=== PATIENT | male | born 1975 | race Caucasian/White ===

== ENCOUNTER 2018-08-18 21:57 | Emergency (ER) | payer MEDICARE ==
[~2018-08-18 21:57] MED LIST: ISOVUE-370 76%-LOCM 1 ML ONE
[2018-08-18] MEDS ORDERED: Dicyclomine 20 MG TAB ONE (23:35)
[2018-08-18 23:40] LABS: #Basophils 0.1 thou/uL (0.0-0.2); #Eosinphils 0.1 thou/uL (0.0-0.7); #Lymphocytes 1.2 thou/uL (1.20-3.40); #Monocytes 0.6 thou/uL (0.11-0.59); #Neutrophils 2.9 thou/uL (1.40-6.50); %Basophils 1.4 % (0.0-1.0); %Eosinophils 1.8 % (0.0-10.0); %Lymphocytes 24.6 % (21.0-51.0); %Monocytes 12.9 % (0.0-10.0); %Neutrophils 59.3 % (42.0-75.0); Hemoglobin 16.1 g/dL (14.0-18.0); MDiff Complete? YES; Macrocytosis SLIGHT = 6-15 cells (100X) (0-5/hpf); Mean Corpuscular HGB CONC 33.9 g/dL (32.0-36.0); Mean Corpuscular Hemoglobin 35.4 pg (27.0-31.0); Mean Platelet Volume 9.5 fL (7.4-10.4); PLT Morphology Comment Appears Decreased; Platelet Count 115 thou/uL (130-400); Red Blood Cell (RBC) Count 4.55 mill/uL (4.70-6.10); White Blood Cell (WBC) Count 4.9 thou/uL (4.8-10.8)
[2018-08-18 23:41] LABS: Bilirubin Negative (Negative); Blood, Urine Negative (Negative); Clarity CLEAR (Clear); Glucose, Urine (Dipstick) Negative (Negative); Leukocyte Negative (Negative); Nitrite Negative (Negative); Protein, Urine (Dipstick) Negative (Neg-Trace); Specific Gravity, Urine 1.004 (1.002-1.036); Urobilinogen 0.2 mg/dL (0.2-1.0); pH, Urine 5.5 (5.0-9.0)
[2018-08-18 23:49] LABS: ALT (SGPT) 76 U/L (8-55); AST (SGOT) 40 U/L (5-34); Albumin 3.9 g/dL (3.5-5.0); Alkaline Phosphatase 61 U/L (40-150); Anion Gap 15 mmol/L (10-20); BUN (Urea Nitrogen) 4 mg/dL (8.9-20.6); Bilirubin, Total 0.5 mg/dL (0.2-1.2); Calc. Creatinine Clearance 0 mL/min (70-130); Calcium 8.7 mg/dL (7.8-10.44); Carbon Dioxide 23 mmol/L (22-29); Chloride 102 mmol/L (98-107); Estimated GFR-MDRD Greater than 90; Globulin 3.2 g/dL (2.4-3.5); Glucose 92 mg/dL (70-105); Potassium 3.8 mmol/L (3.5-5.1); Protein, Total 7.1 g/dL (6.0-8.3); Sodium 136 mmol/L (136-145)
--- NOTE | 2018-08-19 | CT ---
CT ABDOMEN AND PELVIS WITH CONTRAST: 08/18/18 Multiple axial tomograms obtained through the abdomen and pelvis with IV enhancement. INDICATIONS: Right abdominal pain. FINDINGS: Lung bases clear. Liver, spleen and pancreas unremarkable. Adrenal glands normal. Kidneys unremarkable. Small bowel loops are normal caliber. Colon is decompressed and not well evaluated. Appendix is seen and appears normal. Aorta is normal caliber. IVC filter is noted. No adenopathy. Urinary bladder is m ildly distended. IMPRESSION: No evidence of acute process. The colon is decompressed and I cannot adequately assess colon wall. POS: [facility]
== END 2018-08-19 07:13 | disposition home or self-care (01) ==
LOC: ERS 21:57
DX: R10.9 Unspecified abdominal pain (principal); J40 Bronchitis, not specified as acute or chronic; F17.210 Nicotine dependence, cigarettes, uncomplicated
CPT/HCPCS: 36415; 74177; 80053; 81003; 85025; 87086; 96360

== ENCOUNTER 2019-11-29 11:09 | Observation (INO) | payer MEDICARE ==
[2019-11-29] MEDS ORDERED: cefTRIAXone\\ROCEPHIN 2 GM VIAL ONE (12:21)
[2019-11-29] MEDS ORDERED: Acetaminophen 500 MG TAB ONE ×2 (12:21→16:49)
[2019-11-29 12:22] LABS: ALT (SGPT) 61 U/L (8-55); AST (SGOT) 57 U/L (5-34); Albumin 4.3 g/dL (3.5-5.0); Alkaline Phosphatase 64 U/L (40-110); Anion Gap 18 mmol/L (10-20); BUN (Urea Nitrogen) 9 mg/dL (8.9-20.6); Calc. Creatinine Clearance 0 mL/min (70-130); Calcium 9.3 mg/dL (7.8-10.44); Carbon Dioxide 23 mmol/L (22-29); Chloride 98 mmol/L (98-107); Estimated GFR-MDRD 90; Globulin 3.7 g/dL (2.4-3.5); Glucose 106 mg/dL (70-105); Potassium 3.9 mmol/L (3.5-5.1); Sodium 135 mmol/L (136-145)
--- NOTE | 2019-11-29 12:36 | RAD ---
EXAM: Portable chest PROVIDED CLINICAL HISTORY: Dyspnea COMPARISON: 01/13/2005 FINDINGS: Cardiac and mediastinal silhouette is within normal limits. No focal consolidation, pleural fluid or pneumothorax evident. IMPRESSION: No evidence for an acute cardiopulmonary process.
[2019-11-29 12:42] LABS: Band 8 % (5-11); Eosinophils 1 % (0-10); Hemoglobin 17.1 g/dL (14.0-18.0); Lymphocytes 15 % (21-51); MDiff Complete? YES; Mean Corpuscular HGB CONC 34.6 g/dL (32.0-36.0); Mean Corpuscular Hemoglobin 36.9 pg (27.0-31.0); Mean Platelet Volume 9.2 fL (7.4-10.4); Monocytes 12 % (0-10); Neutrophil 64 % (42-75); Platelet Count 112 thou/uL (130-400); Platelet Morphology Comment Appears Decreased; RBC Distribution Width 11.7 % (11.5-14.5); RBC Morphology Normal; Red Blood Cell (RBC) Count 4.63 mill/uL (4.70-6.10); White Blood Cell (WBC) Count 4.5 thou/uL (4.8-10.8)
[2019-11-29 12:44] LABS: Bilirubin Negative (Negative); Blood, Urine Negative (Negative); Clarity Clear (Clear); Glucose, Urine (Dipstick) Normal (Negative); Leukocyte Negative Leu/uL (Negative); Nitrite Negative (Negative); Protein, Urine (Dipstick) 30 mg/dL (Neg-Trace); RBC/HPF 0-3 HPF (0-3); Squamous Epithelial None Seen HPF (0-3); Urobilinogen 12 mg/dL (Less than 2)
[2019-11-29 12:54] LABS: Sperm/HPF 1+ HPF (None Seen)
[2019-11-29 12:57] LABS: Bacteria/HPF 1+ HPF (None Seen)
[2019-11-29] MEDS ORDERED: Oseltamivir 75 MG CAP PO SCH ×2 (14:45→21:00)
[2019-11-29] MEDS ORDERED: Albuterol Sulfate 2.5 mg/0.5 ml Neb ONE (14:49)
[2019-11-29] MEDS ORDERED: Guaifenesin DM 100-10/5 ML UDCUP PO PRN (15:34)
[2019-11-29] MEDS ORDERED: Acetaminophen 650 MG Suppository PR PRN (15:34)
[2019-11-29] MEDS ORDERED: Acetaminophen 325 MG TAB PO PRN (15:34)
[2019-11-29] MEDS ORDERED: Benzonatate 100 MG CAP PO PRN (15:40)
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
[2019-11-29] MEDS: Sodium Chloride 0.9% 1,000 ML IV SCH (18:02)
[2019-11-29 18:10] VITALS: BMI 26.7
[2019-11-29] MEDS: Famotidine 20 MG TAB PO SCH (21:00)
[2019-11-30 06:04] LABS: Hemoglobin 15.2 g/dL (14.0-18.0); Mean Corpuscular Hemoglobin 35.4 pg (27.0-31.0); Mean Platelet Volume 9.4 fL (7.4-10.4); Platelet Count 93 thou/uL (130-400); RBC Distribution Width 11.8 % (11.5-14.5); Red Blood Cell (RBC) Count 4.28 mill/uL (4.70-6.10); White Blood Cell (WBC) Count 3.4 thou/uL (4.8-10.8)
[2019-11-30 06:16] LABS: Band 15 % (5-11); Lymphocytes 28 % (21-51); MDiff Complete? YES; Monocytes 16 % (0-10); Neutrophil 39 % (42-75); Platelet Morphology Comment Appears Decreased; Reactive Lymphocytes 2 % (0-10)
[2019-11-30 06:22] LABS: ALT (SGPT) 52 U/L (8-55); AST (SGOT) 49 U/L (5-34); Albumin 3.7 g/dL (3.5-5.0); Alkaline Phosphatase 48 U/L (40-110); Anion Gap 14 mmol/L (10-20); BUN (Urea Nitrogen) 8 mg/dL (8.9-20.6); Bilirubin, Total 0.6 mg/dL (0.2-1.2); Calc. Creatinine Clearance 130 mL/min (70-130); Calcium 8.5 mg/dL (7.8-10.44); Carbon Dioxide 24 mmol/L (22-29); Chloride 101 mmol/L (98-107); Estimated GFR-MDRD Greater than 90; Globulin 2.8 g/dL (2.4-3.5); Glucose 86 mg/dL (70-105); Potassium 3.6 mmol/L (3.5-5.1); Protein, Total 6.5 g/dL (6.0-8.3); Sodium 135 mmol/L (136-145)
[2019-11-30] MEDS ORDERED: Oseltamivir 75 MG CAP PO SCH (09:00)
[2019-11-30] MEDS ORDERED: Multivit, Therapeutic 1 TAB PO SCH (09:00)
[2019-11-30] MEDS ORDERED: Enoxaparin Sodium 30 MG/0.3 ML SYRINGE SC SCH (09:00)
[2019-11-30] MEDS ORDERED: Cyanocobalamin (Vitamin B-12) 1,000 MCG TAB PO SCH (09:00)
[2019-11-30] MEDS ORDERED: Folic Acid 1 MG TAB PO SCH (09:00)
[2019-11-30] MEDS: Famotidine 20 MG TAB PO SCH (09:15)
[2019-11-30] MEDS: Sodium Chloride 0.9% 1,000 ML IV SCH (09:15)
[2019-11-30 15:36] VITALS: TEMP 97.8
[2019-11-30 17:19] VITALS: BP 131/86
--- NOTE | 2019-11-30 23:23 | DIS ---
DATE OF ADMISSION: 11/29/2019 DATE OF DISCHARGE: 11/30/2019 DISCHARGE DISPOSITION: Home. FOLLOWUP: Follow up with primary care physician at [facility] in 1 week. The patient was seen and examined on the day of discharge. Denies any new complaints. Symptomatically, he feels much better. BRIEF HOSPITAL COURSE: The patient is a 44-year-old male, who presented to the emergency room with generalized weakness, fatigue and flu-like symptoms. His workup was consistent with influenza A. He was monitored on the medical floor and was started on Tamiflu along with other symptomatic measures. The patient has been afebrile today. He will continue Tamiflu as outpatient. Due to macrocytosis, he has been started on vitamin B12 and folic acid supplementation. Lifestyle modification was emphasized. FINAL DIAGNOSES: 1. Influenza A. 2. Generalized weakness secondary to #1. 3. Tobacco dependence. 4. Cannabis abuse. 5. Hyponatremia. 6. Macrocytosis probably secondary to vitamin B12 or folic acid deficiency. Primary care physician advised to follow. 7. Chronic thrombocytopenia of unclear etiology. Primary care physician advised to follow. 8. Leukopenia. 9. Abnormal liver function tests of unclear etiology. The patient understands the above plan of care. Job ID: [id number]
--- NOTE | 2019-12-04 14:49 | EKG ---
Test Reason : Blood Pressure : / mmHG Vent. Rate : 084 BPM Atrial Rate : 084 BPM P-R Int : 180 ms QRS Dur : 074 ms QT Int : 360 ms P-R-T Axes : 075 057 066 degrees QTc Int : 425 ms Normal sinus rhythm Normal ECG Confirmed by NELL CARTAGENA ([id number]), brands editor KENN HILL ([id number]) on 12/04/2019 2:49:07 PM Referred By: Confirmed By:NELL CARTAGENA
== END 2019-11-30 17:47 | disposition home or self-care (01) ==
LOC: ERS 11:09 → T4-B 17:43
PROVIDERS: ADMIT Emergency Medicine; ATTEND Emergency Medicine
DX: J10.1 Influenza due to other identified influenza virus with other respiratory manifestations (principal); D69.6 Thrombocytopenia, unspecified; D72.819 Decreased white blood cell count, unspecified; D75.89 Other specified diseases of blood and blood-forming organs; F12.10 Cannabis abuse, uncomplicated; Z87.891 Personal history of nicotine dependence
CPT/HCPCS: 71045; 80053 ×2; 83605; 85007; 85025; 85027; 87040; 87086; 87804 ×2; 93005; 94640 ×2; 96360; 96361; 96365; 97139; 99285; G0378 ×3; 36415; 81003; 81015; J0696; J7611; J7620